=== PATIENT | male | born 1950 | race Caucasian/White ===

== ENCOUNTER 2022-03-02 20:08 | Emergency (ER) | payer OTHER, SELFPAY ==
[2022-03-02 20:25] VITALS: BP 185/83; PULSE 68; RESP 18; TEMP 36.9; O2SAT 95; BMI 35.4
--- NOTE | 2022-03-02 20:35 | PC.NURSE ---
Pt has urinary catheter in place connected to leg bag, urine yellow and clear. Edema noted to head of penis, around tip of foreskin. Pt reports urinary catheter placed on Wednesday and foreskin was not replaced after procedure.
--- NOTE | 2022-03-02 21:31 | ED_ITS ---
HPI - Male Genitourinary General Chief complaint: Urogenital-Male Stated complaint: cath. painful Time Seen by Provider: 03/02/22 21:30 Source: patient and family Mode of arrival: Ambulatory Limitations: no limitations History of Present Illness HPI Narrative: This is a 71-year-old male with dyslipidemia and recent urinary retention who presents with painful glands and distal end of the penis after having catheter placed. Patient states that he developed UTI with urinary retention had a catheter placed on Wednesday, the he states that it was placed in the emergency department he did not realize he is uncircumcised that they needed to push the foreskin back down after placing the Cochran catheter and patient states he is had increasing swelling and discomfort since then. They have put ice to the affected area which has helped but not resolve the problem. He has a Cochran catheter in place which is draining urine well he is currently on oral antibiotics. His only other medication is atorvastatin. He has not had Cochran catheters in the past. Patient saw Marissa Bee with urology at [facility]. Review of Systems Review of Systems ROS Unobtainable: All systems reviewed & are unremarkable except as noted in HPI and below Patient History Social History Smoking Status: Never smoker Smoking Status: Never smoker alcohol intake frequency: a few times a week Substance Use Type: does not use Exam Narrative Exam Narrative: GENERAL: Alert and oriented x three, male in mild distress HEENT: Head normocephalic, atraumatic, EOMI, pupils reactive, face symmetric, moist mucous membranes NECK: Supple, full range of motion CARDIOVASCULAR: Regular rate and rhythm without murmurs, rubs or gallops. RESPIRATORY: Breath sounds equal bilaterally, no wheezes rales or rhonchi. ABDOMEN: Soft, nontender. Normoactive bowel sounds all 4 quadrants. No guarding or rebound, rigidity, no mass : No CVA tenderness. Patient has Cochran catheter in place draining urine. Patient has swollen glands and the foreskin is retracted and has developed a paraphimosis. There is erythema of the glans but no necrosis. EXTREMITIES: Normal range of motion, no clubbing or edema. Neurovascularly intact NEUROLOGICAL: Cranial nerves II through XII grossly intact. Moving all extremities SKIN: Warm, dry, no petechiae, no rashes or lesions. Initial Vital Signs Initial Vital Signs: Vital Signs Temperature 98.4 F 03/02/22 20:25 Pulse Rate 68 03/02/22 20:25 Respiratory Rate 18 03/02/22 20:25 Blood Pressure 185/83 H 03/02/22 20:25 Pulse Oximetry 95 03/02/22 20:25 Oxygen Delivery Method 03/02/22 20:25 Procedures [facility] [place] Procedure Name of Procedure: Paraphimosis Location: Patient glans swollen and foreskin retracted with swelling. Time out performed: Yes Technique/Description of procedure performed: Patient had Camilo 0 applied prior to procedure. Patient had the glands wrapped with 4x4s tightly with direct pressure applied around the glans for approximately 10-15 minutes. I was then able to reduce the foreskin with some additional pressure the area and foreskin appears to be reduced without additional issue. Patient feels much improved after the procedure. Catheter continues to drain urine without issue. Patient tolerated procedure: Well Complications: none Course Orders Ordered: Discontinued Medications Lidocaine HCl (Lidocaine 2% (Glydo) 6 Ml Gel) 6 ml TOP NOW ONE Stop: 03/02/22 21:42 Last Admin: 03/02/22 21:49 Dose: 6 ml Documented By: AT Vital Signs Vital signs: Vital Signs - 8 hr 03/02/22 20:25 03/02/22 22:50 Temperature 98.4 F Pulse Rate 68 75 Respiratory Rate 18 18 Blood Pressure 185/83 H 151/76 H Pulse Oximetry 95 99 Oxygen Delivery Method Room Air Room Air MDM - Male Genitourinary MDM Narrative Medical decision making narrative: This is a 71-year-old male who had a catheter placed last Wednesday, he states they did retract the foreskin did not realize that they did not pull it down or that it was supposed to be pulled down after the catheter was replaced he is had increasing swelling since then with increasing pain. He presents with paraphimosis, Cochran catheter is in place draining urine. Patient was able to be reduced here in the department Cochran catheter was kept in place and patient has follow-up on the 16 of March. He was asked to contact the urology office to see he is supposed to have his catheter pulled in the next 1-2 days but we discussed that I would recommend delaying this until he is had complete resolution of the swelling in the penile area we also discussed return precautions and if symptoms should reoccur. Discharge Plan Departure Patient Disposition: Home Clinical Impression: Paraphimosis Instructions: DI for Paraphimosis Activity Restrictions/Additional Instructions: We were able to reduce your paraphimosis today. Call the urologist in the morning to see if they have any different recommendations about having your catheter removed. Please continue to monitor the area if it appears that to reoccur and just reoccurred you can ice the area and even attempt to reduce or pull down the foreskin if you are on able to do this please present to the closest emergency department for re-evaluation and treatment. In the future if someone places a Cochran catheter make sure that after they retract the foreskin they then pull it back down so this does not occur again. You may continue to use ice if there is some persistent swelling but it should continued to improve. I would not recommend your Cochran catheter be removed until several days after the swelling has resolved. Please return if paraphimosis or foreskin becomes retracted again, if there is recurrent swelling, increasing pain or other new or concerning symptoms. Referrals: Tello Malave DO [Non-Staff] - Visit Report Forms: Patient Portal/API
[2022-03-02] MEDS: LIDOCAINE 2% (GLYDO) 6 ML GEL TOP (21:49)
[2022-03-02 22:50] VITALS: BP 151/76; PULSE 75; RESP 18; O2SAT 99
--- NOTE | 2022-03-02 22:53 | PC.NURSE ---
Chaperoned procedure performed by Dr. Mcmillan to replace foreskin, pt verbalizes improvement in discomfort.
== END 2022-03-02 22:54 | disposition home or self-care (01) ==
PROVIDERS: Emergency Provider Emergency Medicine
DX: N47.2 Paraphimosis (principal)
CPT/HCPCS: 99282